=== PATIENT | female | born 1950 | race Caucasian/White ===

== ENCOUNTER → 2022-07-13 14:03 | Outpatient (CLI) | payer MEDICARE, SELFPAY ==
--- NOTE | ~2022-07-13 | XR_ITS ---
XR lumbar spine 2-3V 07/13/2022 14:20 Indication: Low back pain. Right leg pain. Procedure: 3 views lumbar spine Comparison: No prior studies for comparison. Findings: There is disc narrowing at all lumbar levels. There is grade 1 degenerative spondylolisthes is at L4-5 and L5-S1. Vertebral body heights are maintained. There is facet hypertrophy at L3-4, L4-5 and L5-S1. There is atherosclerosis of the aorta and iliac arteries. No acute fracture or traumatic malalignment. Impression: 1: Moderate lumbar spondylosis with grade 1 degenerative spondylolisthesis at L4-5 and L5-S1. Reviewed, dictated and finalized at location B. Impression: 1: Moderate lumbar spondylosis with grade 1 degenerative spondylolisthesis at L 4-5 and L5-S1.
== END ==
PROVIDERS: PCP Emergency Medicine; Visit Provider Physician Assistant
DX: M47.896 Other spondylosis, lumbar region (principal)
CPT/HCPCS: 72100

== ENCOUNTER 2022-08-10 07:30 | Day surgery (SDC) | payer MEDICARE, SELFPAY ==
[2022-08-09 14:09] VITALS: BMI 31.8
--- NOTE | ~2022-08-10 | XR_ITS ---
CORRECTED REPORT exam description change [facility] 08/11/22 This report was recreated on 08/11/22. Original report was EXAMINATION: XR fluoroscopy no charge Pain management procedure TECHNIQUE: Fluoroscopy used during bilateral sacroiliac joint injection performed by [Antonio Cortez MD] on 08/10/2022. 19 seconds of fluoroscopy time with 6 fluoroscopic images captured. FINDINGS: Correlate with procedure note. IMPRESSION: Fluoroscopy used during bilateral sacroiliac joint injection. Please refer to procedural report. Reviewed, dictated and finalized at location L. MTDD IMPRESSION: Fluoroscopy used during bilateral sacroiliac joint injection. Zahira e refer to procedural report.
[2022-08-10 08:05] VITALS: BP 133/80; PULSE 67; RESP 20; TEMP 36.7; O2SAT 100
--- NOTE | 2022-08-10 08:52 | WPDHPUPDATE1 ---
History and Physical Update Update Date/Time: 08/10/22 08:52 History and Physical has been reviewed, including an updated exam of the patient. There are NO changes in the patient's condition. Risks, benefits, and alternatives have been discussed and questions answered. Patient agrees to proceed with procedure.
[2022-08-10 09:30] VITALS: BP 167/68; PULSE 66; RESP 18; O2SAT 100
[2022-08-10 09:35] VITALS: BP 161/72; PULSE 66; RESP 14; O2SAT 100
[2022-08-10 09:46] VITALS: BP 147/76; PULSE 68; RESP 18; O2SAT 100
[2022-08-10] MEDS: LIDOCAINE HCL 1% PF INJ 5 ML VIAL 2.5 ML INFILTRATE (09:50)
--- NOTE | 2022-08-10 09:57 | W.PM.PROC2 ---
Procedure Note - Detailed Date of Procedure 08/10/22 Pre-op Diagnosis M46.1 Post-op Diagnosis Same Procedure Performed bilateral intra-articular SI joint steroid injections under fluoroscopic guidance. Surgeon Antonio Cortez MD Counter Dish Carrier None. Anesthesia Local Indications Bilateral chronic low back pain, sacroiliitis. Findings None. Description of Procedure INFORMED CONSENT: Risks, benefits and alternatives to the procedure were discussed in detail with the patient who expressed explicit understanding and consent to proceed. Patient was informed verbally and in written form regarding the risks associated with the procedure including the low risk of serious infection, bleeding/bruising, allergic reaction, nerve or organ injury, paralysis, procedural site pain or discomfort, worsening pain and/or mobility, failure to treat and/or disfigurement. The patient expressed explicit understanding and consent to proceed. All materials required for the procedure were available prior to procedure start. Site and side were marked prior to procedure and confirmed in the presence of the patient. PROCEDURE IN DETAIL: The patient was brought to the procedural suite and placed in the prone position. Patient was made comfortable with use of pillows under the head/chest, hips and ankles. Skin overlying the injection site on the affected side(s) was prepared broadly with ChloraPrep applicator and draped in a sterile manner. Aseptic technique was used throughout. The SI joint was identified in the AP view and contralateral oblique angulation with caudal tilt was utilized to optimize visualization of the inferior and medial joint line representing the posterior portion of the joint. Local anesthesia was established by infiltration with approximately 5 mL of 2% lidocaine via a 1-1/2 inch 27-gauge needle. A 22-gauge 3.5 inch Quincke spinal needle was advanced until the needle entered the inferior third of the joint space approximately 1cm cephalad from its most inferior point. In the AP view, 0.5 mL of Omnipaque 180 contrast medium was injected after negative aspiration for CSF, blood or other bodily fluid, showing appropriate intra-articular spread of contrast without evidence of intravascular, perineural or intrathecal placement. A 1.0 mL solution containing 5.0 mg of dexamethasone in 0.5% PF bupivacaine was injected after repeat negative aspiration. Appropriate spread of the injectate was confirmed with washout of previous injected contrast. No parasthesias were elicited. Needle was removed completely intact without difficulty. The same exact procedure was repeated for all remaining levels on the contralateral side, left SI joint, modified as necessary to accommodate for the new target location with identical findings/results and no evidence of complication. Images were saved and documented in the patient chart. Patient's skin was cleansed and sterile bandage applied. The patient tolerated the procedure well. The patient was transported to the recovery area in stable condition where they were observed for an appropriate amount of time prior to discharge, without evidence of complication. The patient was instructed to avoid excessive activity for the next 48 hours, including climbing and frequent use of stairs. Showers only for 48 hours. They were instructed not to drive or operate heavy machinery for 24 hours. They are to monitor for severe headaches, fevers, chills, night sweats, erythema/swelling at the site or any other signs of infection, bleeding/bruising, bowel or bladder changes as well as new pain, weakness or numbness in the upper or lower extremity. Should they notice these changes, they are instructed to call our office immediately or report directly to the nearest Emergency Department if no answer or if after posted office hours. COMPLICATIONS: None COMMENTS: None EXPOSURE: Time: 19.4s, Dose: 1.27 mrad CONTRAST WASTED: 29mL Omnipaque 180. Complic
[2022-08-10] MEDS: BUPivacaine HCL 0.5% 10 ML AMP INFILTRATE (10:00)
== END 2022-08-10 10:03 | disposition home or self-care (01) ==
PROVIDERS: PCP Emergency Medicine; Visit Provider Anesthesiology Pain Medicine
PROC: (CPT G0260; principal; 2022-08-10 09:00)
DX: M46.1 Sacroiliitis, not elsewhere classified (principal)
CPT/HCPCS: G0260 ×2; 27096; 99199

== ENCOUNTER → 2022-08-20 13:49 | Outpatient (CLI) | payer MEDICARE, SELFPAY ==
--- NOTE | ~2022-08-20 | MR_ITS ---
EXAMINATION: MR lumbar spine wo con DATE: 08/20/2022 14:31 INDICATION: Right lumbosacral (S1) radicular pain. TECHNIQUE: Magnetic resonance imaging (MRI) of the lumbar spine was performed without intravenous con trast. Sequences included sagittal T2-weighted FSE, sagittal T2-weighted FS FSE, sagittal T1-weighted FSE, and axial T2-weighted FSE. COMPARISON: None FINDINGS: 4 degree lumbar dextrocurvature. 1-2 mm retrolisthesis L2 on L3 and 3 mm retrolisthesis L3 on L4. Mary tebral body heights are normal. Normal marrow signal. This desiccation and mild disc height loss fro m T11-T12 through L5-S1 relatively sparing T12-L1. The conus medullaris terminates at L2-L3. There is normal signal in the caudal spinal cord. Left renal cysts the largest measuring 1.6 cm the lower sharlene e. Paravertebral soft tissues are unremarkable. The following disc levels are specifically discussed: T12-L1: The disc does not extend beyond the endplate margin. There is mild bilateral facet joint oste oarthritis. There is no neural foraminal stenosis. There is no central canal stenosis. L1-L2: Disc is bulging. There is minimal bilateral facet joint osteoarthritis. There is bilateral afua ral foraminal stenosis. There is mild central canal stenosis. L2-L3: Disc is bulging. There is hypertrophy of the ligamentum flavum. There is mild bilateral facet joint osteoarthritis. There is mild to moderate bilateral neural foraminal stenosis. There is mild to moderate central canal stenosis. L3-L4: Disc is bulging. There is hypertrophy of the ligamentum flavum. There is moderate bilateral fa cet joint osteoarthritis. There is mild to moderate bilateral neural foraminal stenosis. There is mil d central canal stenosis. L4-L5: Disc is bulging. There is hypertrophy of the ligamentum flavum. There is severe bilateral fac et joint osteoarthritis. There is moderate bilateral neural foraminal stenosis. There is severe centr al canal stenosis. L5-S1: Disc is mildly bulging. There is moderate left and severe right facet joint osteoarthritis. Th ere is mild bilateral neural foraminal stenosis. There is no central canal stenosis. IMPRESSION: 1. Mild lumbar spondylosis with severe lower lumbar facet osteoarthritis most notable for severe cent ral canal stenosis at L4-L5. Reviewed, dictated and finalized at location A. IMPRESSION: 1. Mild lumbar spondylosis with severe lower lumbar facet osteoarthritis most n otable for severe central canal stenosis at L4-L5.
--- NOTE | ~2022-08-20 | XR_ITS ---
EXAMINATION: XR sacroiliac joints min 3V INDICATION: Bilateral buttock pain TECHNIQUE: Three views of the sacroiliac joints are obtained. COMPARISON: None available FINDINGS: Bone alignment is normal. There is no fracture. No abnormal erosion or sclerosis of the sac roiliac joints is identified. IMPRESSION: 1. No acute osseous abnormality. Reviewed, dictated and finalized at location B.
--- NOTE | ~2022-08-20 | XR_ITS ---
EXAMINATION: XR lumbar spine 6V w bending DATE: 08/20/2022 14:14 INDICATION: Low back pain TECHNIQUE: Anteroposterior, lateral in neutral, flexion and extension, and bilateral oblique views of the lumbar spine, and cone-down lateral view of the lumbosacral junction were obtained. COMPARISON: 07/13/2022 FINDINGS: There are 4 mm of anterolisthesis of L4 on L5. No hypermobility is present with flexion or extension. The vertebral body heights are maintained. There is mild loss of intervertebral disc space height throughout the lumbar spine. There is no fracture. There is severe facet joint osteoarthritis of the lower lumbar spine. Calcified atherosclerosis is noted. Small degenerative osteophytes projec t from the anterior endplates of multiple vertebral bodies. IMPRESSION: 1. Mild to moderate lumbar spondylosis without acute findings. Reviewed, dictated and finalized at location B.
== END ==
PROVIDERS: PCP Emergency Medicine; Visit Provider Anesthesiology Pain Medicine
DX: M43.17 Spondylolisthesis, lumbosacral region (principal); M47.26 Other spondylosis with radiculopathy, lumbar region; M48.061 Spinal stenosis, lumbar region without neurogenic claudication
CPT/HCPCS: 72114; 72148; 72202

== ENCOUNTER 2022-09-14 07:52 | Day surgery (SDC) | payer MEDICARE, SELFPAY ==
[2022-09-13 12:20] VITALS: BMI 31.7
--- NOTE | ~2022-09-14 | XR_ITS ---
XR fluoroscopy no charge Procedure: Right L3-4, L4-5 transforaminal epidural steroid injection TECHNIQUE: Fluoroscopy used during Right L3-4, L4-5 transforaminal epidural steroid injection perfor med by [Antonio Cortez MD] on 09/14/2022. 11 seconds of fluoroscopy time with 3 images captured. FINDINGS: Correlate with procedure note. IMPRESSION: Fluoroscopy used during Right L3-4, L4-5 transforaminal epidural steroid injection. Reviewed, dictated and finalized at location A. IMPRESSION: Fluoroscopy used during Right L3-4, L4-[address] eroid injection.
--- NOTE | 2022-09-14 07:24 | WPDHPUPDATE1 ---
History and Physical Update Update Date/Time: 09/14/22 07:24 History and Physical has been reviewed, including an updated exam of the patient. There are NO changes in the patient's condition. Risks, benefits, and alternatives have been discussed and questions answered. Patient agrees to proceed with procedure.
[2022-09-14 08:48] VITALS: BP 131/71; PULSE 61; RESP 14; O2SAT 98
[2022-09-14 09:25] VITALS: BP 138/62; PULSE 65; RESP 18; O2SAT 98
--- NOTE | 2022-09-14 09:35 | W.PM.PROC2 ---
Procedure Note - Detailed Date of Procedure 09/14/22 Pre-op Diagnosis Spinal stenosis, Lumbar region with nuerogenic claudication, lumbar radiculopathy Post-op Diagnosis Same Procedure Performed Right L3-4, L4-5 transforaminal epidural steroid injection with fluoroscopy. Surgeon Antonio Cortez MD Anesthesia Local Description of Procedure INFORMED CONSENT: Risks, benefits and alternatives to the procedure were discussed in detail with the patient who expressed explicit understanding and consent to proceed. Patient was informed verbally and in written form regarding the risks associated with the procedure including the low risk of serious infection, bleeding/bruising, allergic reaction, nerve or organ injury, paralysis, procedural site pain or discomfort, worsening pain and/or mobility, failure to treat and/or disfigurement. The patient expressed explicit understanding and consent to proceed. All materials required for the procedure were available prior to procedure start. Site and side was marked prior to procedure and confirmed in the presence of the patient. PROCEDURE IN DETAIL: The patient was brought to the procedural suite and placed in the prone position. Patient was made comfortable with use of pillows under the head/chest, hips and ankles. Skin overlying the injection site was prepared broadly with ChloraPrep applicator and draped in a sterile manner. Aseptic technique was employed throughout. The endplates of the vertebral body at the site of interest were aligned in the AP view. Ipsilateral oblique angulation was utilized to better visualize the neuroforamen of interest. Local anesthesia was established by infiltration with approximately 5 mL of 2% lidocaine via a 1-1/2 inch 27-gauge needle. A 22-gauge 5.0 inch Melida (pencil point) spinal needle was advanced until the needle approached the 6 o'clock position on the pedicle just superior to the exiting nerve root. on the right at L4-5. Lateral view was utilized to confirm appropriate position of the needle tip within the superior and posterior portion of the respective foramen. In an AP view, 1 mL of Omnipaque 300 contrast medium was injected after negative aspiration for CSF, blood or other bodily fluid, showing appropriate neurogram without evidence of intravascular or intrathecal spread of contrast. Digital subtraction imaging was used with an additional 1ml of the same contrast medium to confirm absence of intravascular contrast spread. A 1mL solution containing 5 mg of dexamethasone was injected after negative repeat aspiration. Appropriate spread of the injectate was confirmed with washout of previously injected contrast. No parasthesias were elicited. Needle was removed completely intact without difficulty. The same exact procedure was repeated for all remaining levels on the ipsilateral side, right L3-4 neuroforamen, modified as necessary to accommodate for the new target location with identical findings and results and no evidence of complication. Images were saved and documented in the patient chart. Patient's skin was cleaned and sterile bandage applied. The patient tolerated the procedure well. The patient was transported to the recovery area in stable condition where they were observed for an appropriate amount of time prior to discharge, without evidence of complication. The patient was instructed to avoid excessive activity for the next 48 hours, including climbing and frequent use of stairs. Showers only for 48 hours. They were instructed not to drive or operate heavy machinery for 24 hours. They are to monitor for severe headaches, fevers, chills, night sweats, erythema/swelling at the site or any other signs of infection, bleeding/bruising, bowel or bladder changes as well as new pain, weakness or numbness in the upper or lower extremity. Should they notice these changes, they are instructed to call our office immediately or report directly to the nearest Emergency Department if no answer or
[2022-09-14 09:36] VITALS: BP 145/70; PULSE 61; RESP 20; O2SAT 98
[2022-09-14] MEDS: LIDOCAINE HCL 1% PF INJ 5 ML VIAL 3 ML XX (10:19)
[2022-09-14] MEDS: LIDOCAINE HCL 2% PF INJ 5 ML VIAL 1 ML INFILTRATE (10:21)
== END 2022-09-14 09:44 | disposition home or self-care (01) ==
PROVIDERS: PCP Emergency Medicine; Visit Provider Anesthesiology Pain Medicine
PROC: (CPT 64483; principal; 2022-09-14 09:00)
DX: M48.07 Spinal stenosis, lumbosacral region (principal); M54.16 Radiculopathy, lumbar region
CPT/HCPCS: 64483; 99199

== ENCOUNTER 2022-11-05 09:02 | Outpatient (CLI) | payer MEDICARE, SELFPAY ==
--- NOTE | ~2022-11-05 | XR_ITS ---
EXAMINATION: XR chest 2V 11/05/2022 09:41 INDICATION: Dyspnea PROCEDURE: 2 view chest COMPARISON: No prior studies for comparison. FINDINGS: The lungs are clear. The lungs are hyperinflated which is consistent with, but not diagnost ic of chronic obstructive pulmonary disease. The cardiomediastinal silhouette is within normal limits . There are no pleural effusions. There is no pneumothorax suspected. IMPRESSION: 1: NO ACUTE CARDIOPULMONARY DISEASE. Reviewed, dictated and finalized at location B.
--- NOTE | 2022-11-05 09:15 | ECG_ITS ---
Measurements Intervals Clifford Rate: 55 P: 18 MS: 214 QRS: -43 QRSD: 97 T: 30 QT: 434 QTc: 415 Interpretive Statements SINUS BRADYCARDIA WITH FIRST DEGREE AV BLOCK LEFT AXIS DEVIATION POOR R WAVE PROGRESSION, ANTERIOR LEADS BORDERLINE ECG NO PREVIOUS ECG AVAILABLE FOR COMPARISON Electronically Signed On 11-05-2022 10:26:12 CDT by Mushtaq Short D.O.
[2022-11-05 09:56] LABS: Basophils Absolute Auto 0.1 K/mm3 (0.0-0.1); Basophils Percent Auto 0.7 % (0.2-1.2); Eosinophils Absolute Auto 0.5 K/mm3 (0-0.3); Eosinophils Percent Auto 6.6 % (0-4.4); Hematocrit 37.3 % (37.0-47.0); Hemoglobin 12.6 g/dL (12.0-15.0); Immature Granulocyte Absolute 0.01 K/mm3 (0.00-0.031); Immature Granulocyte Percent A 0.1 % (0-0.5); Lymphocytes Absolute Auto 1.71 K/mm3 (0.9-3.2); Mean Corpuscular HGB Conc 33.8 g/dl (32-36); Mean Corpuscular Hemoglobin 29.4 pg (26-34); Mean Corpuscular Volume 87.1 fl (80-100); Mean Platelet Volume 9.7 fl (7.4-10.4); Monocytes Absolute Auto 0.5 K/mm3 (0.1-0.6); Monocytes Percent Auto 6.5 % (2.6-8.5); Neutrophils Absolute Auto 4.7 K/mm3 (1.3-6.7); Neutrophils Percent Auto 63.1 % (45.5-73.1); Platelet Count Result 330 k/mm3 (150-375); Red Blood Count 4.28 M/mm3 (4.2-5.4); Red Cell Distribution Width 12.9 % (11.5-14.5); White Blood Count 7.4 K/mm3 (4.5-10.0)
[2022-11-05 10:07] LABS: Alanine Aminotransferase 22 U/L (6-35); Albumin Level 3.9 g/dL (3.5-5.1); Alkaline Phosphatase 76 U/L (38-126); Anion Gap 4 mmol/L (8-16); Aspartate Amino Transferase 28 U/L (14-36); Bilirubin,Total 0.4 mg/dL (0.2-1.3); Blood Urea Nitrogen 16 mg/dL (7-17); Carbon Dioxide 34 mmol/L (22-30); Chloride 95 mmol/L (98-107); Estimated Glomerular Filt Rate 49; Glucose 100 mg/dL (65-110); Potassium 3.2 mmol/L (3.4-5.0); Sodium 133 mmol/L (137-145)
[2022-11-05 10:15] LABS: INR 0.9; Partial Thromboplastin Time 23.6 SECONDS (22.3-36.8); Prothrombin Time 12.9 Seconds (11.1-14.7)
== END 2022-11-05 09:03 | disposition home or self-care (01) ==
LOC: ANHSURGERY 09:07
PROVIDERS: PCP Emergency Medicine; Visit Provider Anesthesiology Pain Medicine
DX: Z01.810 Encounter for preprocedural cardiovascular examination (principal); Z01.812 Encounter for preprocedural laboratory examination; Z01.811 Encounter for preprocedural respiratory examination; M47.817 Spondylosis without myelopathy or radiculopathy, lumbosacral region; R00.1 Bradycardia, unspecified; I44.0 Atrioventricular block, first degree
CPT/HCPCS: 36415; 71046; 80053; 85025; 85610; 85730; 93005

== ENCOUNTER 2022-11-08 00:43 | Day surgery (SDC) | payer MEDICARE, SELFPAY ==
[2022-11-02 15:22] VITALS: BMI 31.5
--- NOTE | 2022-11-02 15:31 | PC.NURSE ---
PRE-OP INSTRUCTIONS, PLEASE READ CAREFULLY Report to the Outpatient Waiting Room, entrance under the green pavilion located off [facility], at time _0830_ on date _11/08/22 . Planned Procedure Time: _1030_. Time changes happen often and if your time is changed the preop area will call you the afternoon before. - You and your visitor will be asked to self-screen and do not enter if you have any COVID symptoms. - A mask is optional within the hospital at this time. Patients may have clear liquids (water, carbonated beverages, clear teas, apple juice) until 3 hours prior to surgery with a maximum of 20 ounces. - No food from midnight until time of surgery Take the following medications with a SIP of water the morning of surgery: _LEVOTHYROXINE, PROPRANOLOL, & CYCLOBENZAPRINE, TRAMADOL IF NEEDED_ DO NOT STOP ANY OF YOUR OTHER PRESCRIPTION MEDICATIONS PRIOR TO SURGERY ?EXCEPT THE FOLLOWING Medications to discontinue per physician __NONE___, Date to take last dose Please no make-up, nail slovenian, hairspray, perfume, deodorant, or body powder the day of surgery. No jewelry (including any body piercings) or valuables the day of surgery, leave them at home. Please take a shower or bath the night before, or the morning of, surgery with an antibacterial soap. Wear comfortable, loose fitting clothing. - Jewelry must be removed prior to entering the operating room. Rings and piercings that are not removed may be cut off. - The hospital will not accept responsibility for valuables. - Please leave all valuables, including medications, at home the day of surgery. If you are going home after surgery, a licensed ems driver must drive you home. - NO public transportation without another adult if you receive anesthesia. - We recommend that an adult stay with you for 24 hours following discharge. - We also recommend that you do not drive, make important decision, drink alcoholic beverages, or take any drugs that were not prescribed by your health care provider for at least 24 hours after your discharge time. Follow any additional instructions given to you from your surgeon. If you or anyone in your household have experienced Covid symptoms in the past week, please notify your surgeon or the nurse liaison at the phone number below for possible testing. Telephone instructions given to _PATIENT_and asked if any additional questions and then verbalized understanding. Patient advised to call surgeon office or pre surgery nurse liaison [phone] if any additional questions.
--- NOTE | ~2022-11-08 | XR_ITS ---
EXAMINATION: XR fluoroscopy no charge DATE: 11/08/2022 11:48 INDICATION: Lumbar decompression TECHNIQUE: 4 fluoroscopic images of the lumbar spine were obtained during procedure performed by Dr. Cortez. Radiologist was not present for the imaging or procedure. The amount of fluoroscopy time used d uring this procedure was 10.0 minutes. COMPARISON: None. FINDINGS: Fluoroscopic images demonstrate the tip of a metallic probe projecting over the left and right sides of the lower lumbar spine. IMPRESSION: 1. Fluoroscopy utilized during surgical procedure at the lower lumbar spine. See procedure note for f urther detail. Reviewed, dictated and finalized at location A. IMPRESSION: 1. Fluoroscopy utilized during surgical procedure at the lower lumbar spine. Se e procedure note for further detail.
[2022-11-08 08:32] VITALS: BMI 31.7
[2022-11-08 08:35] VITALS: BP 128/68; PULSE 57; RESP 16; TEMP 36.1; O2SAT 100
--- NOTE | 2022-11-08 08:43 | WPDHPUPDATE1 ---
History and Physical Update Update Date/Time: 11/08/22 08:43 History and Physical has been reviewed, including an updated exam of the patient. There are NO changes in the patient's condition. Risks, benefits, and alternatives have been discussed and questions answered. Patient agrees to proceed with procedure.
--- NOTE | 2022-11-08 08:44 | PM.HPGS ---
History of Present Illness History of Present Illness Consent: Risks, benefits, and alternatives have been discussed and questions answered. Patient agrees to proceed with procedure. Chief complaint: spinal stenosis Narrative: Mateo Belcher is a 72 year old female with chronic, recalcitrant pain and disability secondary to moderate to severe lumbar spinal stenosis with ligamentum flavum hypertrophy for bilateral L3-4, L4-5 MILD procedure. [facility] Surgical History Surgical History Hx of cholecystectomy Family History Family History Sibling Diabetes mellitus Family history of malignant neoplasm of cervix Mother Hypertension Social History Social History Smoking status: Former smoker Tobacco type: cigarettes Second hand tobacco smoke exposure: No Additional smoking assessment comments: STATES SMOKED 1/2-3/4PK/DAY/20YRS-QUIT YEARS AGO Alcohol intake: never Substance use: never Substance use type: does not use Lack of Transportation: No Lack of Food: Never True Current Housing: I Have Housing Concerned About Future Housing: No Difficulty Paying Gas/Electric Bills: No Difficulty Paying for Meds: No Currently Unemployed: No Education: Associate Degree Difficulty w/ Childcare or Family Care: No Living arrangements: with family Occupation/Education: retired Gender identity (if verbalized by the patient): Female Spiritual care concerns: No Agree to blood products: Yes Meds Home Medications and Allergies Home Medications Medication Instructions Recorded Confirmed Type omeprazole 20 mg delayed 20 mg PO DAILY 02/05/19 11/02/22 History release,disintegrating tablet propranolol 40 mg tablet See Rx Instructions .Route 07/29/22 11/02/22 Rx .COMPLEX #180 tabs simvastatin 20 mg tablet See Rx Instructions .Route 07/29/22 11/02/22 Rx .COMPLEX #90 tabs ezetimibe 10 mg tablet (Zetia) See Rx Instructions .Route .COMPLEX 08/09/22 11/02/22 History levothyroxine 125 mcg tablet See Rx Instructions .Route 08/20/22 11/02/22 Rx (Euthyrox) .COMPLEX #90 tabs spironolactone 25 See Rx Instructions .Route 06/30/23 09/12/23 Rx mg-hydrochlorothiazide 25 mg tablet .COMPLEX #90 tabs cyclobenzaprine 10 mg tablet 10 mg PO TID PRN muscle spasm #30 11/04/22 Rx tabs tramadol 50 mg tablet 50 mg PO Q6H PRN pain #30 tabs 11/04/22 Rx Allergies Allergy/AdvReac Type Severity Reaction Status Date / Time No Known Allergies Allergy Verified 11/02/22 15:19 Exam Const: General: cooperative, healthy appearing, comfortable, no acute distress, well developed, alert, awake and Physically active Nutritional Appearance: average body habitus Orientation/consciousness: patient oriented x3 HENMT: Head: normal to inspection Eyes: General: appearance normal, both eyes and all related structures Neck: Neck: normal visual inspection Chest: Chest palpation & inspection: normal inspection of the chest Resp: Effort & Inspection: normal respiratory effort Auscultation: clear to auscultation bilaterally Cardio: Rate: regular rate Rhythm: regular rhythm Peripheral pulses: Peripheral pulses 2+ throughout GI: Inspection: normal to inspection Back/Spine/Pelvis: Thoracic/Lumbar Spine: thoracic and lumbar spine normal to inspection Skin: General skin exam: normal color and no rashes or lesions noted Neuro: Cranial nerves: Yes CN's II-XII intact bilaterally Cognition (Neuro): normal cognition Speech: normal speech Extrem: General: normal to inspection Psych: Appearance: grossly normal Mental Status: mental status grossly normal Speech and movement: Normal speech and movement present Assessment and Plan Assessment and plan (1) Spinal stenosis, lumbar region with neurogenic claudication: Code(s): M48.062 - Spinal stenos
--- NOTE | 2022-11-08 09:12 | WPDANESEPPF ---
Anes - Initial Pre Proc Eval Procedure: Operation Date: 11/08/22 10:30 Proposed Procedures p Minimally Invasive Lumbar Decompression L3-4, L4-5 - Antonio Cortez MD Date/Time: 11/08/22 09:12 Surgeon: Antonio Cortez MD Pre Op Diagnosis: spinal stenosis Patient Data Age: 72 Gender: F Height: 1.69 m Weight: 90 kg Allergies Allergy/AdvReac Type Severity Reaction Status Date / Time No Known Allergies Allergy Verified 11/02/22 15:19 Home Medications Medication Instructions Recorded Confirmed Type omeprazole 20 mg delayed 20 mg PO DAILY 02/05/19 11/02/22 History release,disintegrating tablet propranolol 40 mg tablet See Rx Instructions .Route 07/29/22 11/02/22 Rx .COMPLEX #180 tabs simvastatin 20 mg tablet See Rx Instructions .Route 07/29/22 11/02/22 Rx .COMPLEX #90 tabs ezetimibe 10 mg tablet (Zetia) See Rx Instructions .Route .COMPLEX 08/09/22 11/02/22 History levothyroxine 125 mcg tablet See Rx Instructions .Route 08/20/22 11/02/22 Rx (Euthyrox) .COMPLEX #90 tabs spironolactone 25 See Rx Instructions .Route 08/20/22 11/02/22 Rx mg-hydrochlorothiazide 25 mg tablet .COMPLEX #90 tabs cyclobenzaprine 10 mg tablet 10 mg PO TID PRN muscle spasm #30 11/04/22 Rx tabs tramadol 50 mg tablet 50 mg PO Q6H PRN pain #30 tabs 11/04/22 Rx Patient hx anesthesia problems: none Family hx anesthesia problems: none Results Review: All pre-operative results and documents have been reviewed as part of the pre-operative evaluation. [facility] Surgical History Surgical History Hx of cholecystectomy Family History Family History Sibling Diabetes mellitus Family history of malignant neoplasm of cervix Mother Hypertension Social History Social History Smoking status: Former smoker Tobacco type: cigarettes Second hand tobacco smoke exposure: No Additional smoking assessment comments: STATES SMOKED 1/2-3/4PK/DAY/20YRS-QUIT YEARS AGO Alcohol intake: never Substance use: never Substance use type: does not use Lack of Transportation: No Lack of Food: Never True Current Housing: I Have Housing Concerned About Future Housing: No Difficulty Paying Gas/Electric Bills: No Difficulty Paying for Meds: No Currently Unemployed: No Education: Associate Degree Difficulty w/ Childcare or Family Care: No Living arrangements: with family Occupation/Education: retired Gender identity (if verbalized by the patient): Female Spiritual care concerns: No Agree to blood products: Yes Anes - Eval Final PreProcedure Day of Procedure 11/08/22 09:12 Patient weight: normal Heart: regular rate and rhythm Lungs: clear to auscultation Airway: Mallampati scale class II Last oral intake: >/= 8 hours ASA classification: III Emergent: no Anesthetic plan: proceed Anesthesia type and monitoring: general GIVS and standard monitoring Results Review: All pre-operative results and documents have been reviewed as part of the pre-operative evaluation. Informed Consent: The patient's anesthetic plan and its attendant risks and benefits were discussed with the patient/family/POA. Questions were solicited and answers provided to the satisfaction of the patient/family/POA.
[2022-11-08] MEDS: LACTATED RINGERS 1,000 ML 30 ML IV CONT (09:30)
[2022-11-08] MEDS: ceFAZolin 2 GM/D5W 50 ML 2 GM/50 ML BAG IVPB (10:28)
[2022-11-08] MEDS: BUPIVACAINE/EPINEPHRINE 0.5% 50 ML VIAL 15 ML INFILTRATE (10:41)
[2022-11-08] MEDS: LIDO 1%/EPINEPHRINE 1:100,000 50 ML VIAL 15 ML INFILTRATE (10:42)
[2022-11-08 12:10] VITALS: BP 127/70; PULSE 66; RESP 16
--- NOTE | 2022-11-08 12:15 | W.PM.PROC2 ---
Procedure Note - Detailed Date of Procedure 11/08/22 Pre-op Diagnosis lumbar spinal stenosis with neurogenic claudication Post-op Diagnosis Same Procedure Performed Bilateral L3-4, L4-5 Minimally Invasive Lumbar Decompression (MILD) under fluoroscopic guidance. Surgeon Antonio Cortez MD Anesthesia MAC and Local Description of Procedure INFORMED CONSENT: Risks, benefits, and alternatives to the procedure were discussed in detail with the patient who expressed explicit understanding and consent to proceed. Risks discussed with the patient included but were not limited to risk of serious local or systemic infection, bleeding/bruising, epidural hematoma, dural puncture or tear resulting in CSF leak and acute or chronic post-dural puncture headache, scarring/deformity, immediate or delayed allergic reaction, decreased mobility, failure to treat pain, inadvertent neurologic injury resulting in increased pain, weakness/paralysis or numbness, inadvertent organ injury, need for additional surgery, allergic reaction, heart attack, stroke, seizure, coma, . Anesthetic risks were also briefly discussed by myself and the company secretary. The patient expressed understanding and consent to proceed, agreeing that potential benefits outweigh risk of harm. All materials required for the procedure were immediately available prior to procedure start. Site and side were confirmed with the patient, compared carefully to the patient chart and consent, and marked prior to transport to the operating room. Appropriate time out procedure was performed per protocol prior to procedure start. PROCEDURE IN DETAIL: The patient was brought to the operative suite and placed in the prone position. Appropriate ASA standard monitors were attached. Anesthesia was initiated without difficulty or event. Eyes were protected. Pressure points were padded with joints in neutral position. When appropriate, breasts and genitals were evaluated and protected. Eyes were checked and were free from undue pressure. Skin overlying the procedure site was marked with sterile marker. Surgical area was prepared in a typical sterile fashion with ChloraPrep and allowed to dry for at least 3 minutes prior to sterilely draping the surgical site. The lumbar spine was identified in the AP fluoroscopic view with slight cephalad tilt perfectly aligning the endplates at the targeted levels with spinous processes bisecting the transpedicular plane. After identifying the intended incision site approximately 1.5 levels inferior to the level of interest, the area was anesthetized by infiltration with no more than 10ml of a 1:1 admixture of 0.5% PF bupivacaine with epinephrine and 2% PF lidocaine with epinepherine via a 27-gauge needle after negative aspiration. A 22-gauge spinal needle was used to provide additional and adequate local anesthesia to the level of the interspinous ligament, ligamentum flavum and the periosteum of the lamina at the intended treatment levels. In the AP view, a #11 scalpel blade was used to create a single stab incision at the intended incision site on the targeted side. The Vertos MILD kit was opened and the included cannula and trocar assembly was advanced through the incision to contact the midportion of the right lamina just adjacent to the spinous process at L5. Once seated, the lateral view was used to gauge depth demonstrating the most anterior tip of the trocar posterior to the epidural space at all times. The dress cap maker-provided cannula stabilizer was placed over the trocar flush to the patient's lumbar flank. Cannula obturator with handle was removed. Included depth guide was then attached to the insertion port on the cannula and set to an intial depth of 15 mm. The bone rongeur was advanced to the depth of the lumbar lamina at the targeted level. Depth gauge was then adjusted allowing rongeur tip to advance in the contralateral oblique view to the anterior border of the superior and
[2022-11-08 12:40] VITALS: BP 136/68; PULSE 63; RESP 20
[2022-11-08 12:41] VITALS: BP 110/67; PULSE 75; RESP 20; O2SAT 97
[2022-11-08 13:00] VITALS: BP 133/65; PULSE 65; RESP 16
== END 2022-11-08 13:15 | disposition home or self-care (01) ==
PROVIDERS: PCP Emergency Medicine; Visit Provider Anesthesiology Pain Medicine
PROC: (CPT 0275T; principal; 2022-11-08 10:30)
DX: M48.062 Spinal stenosis, lumbar region with neurogenic claudication (principal); Z87.891 Personal history of nicotine dependence; Z79.891 Long term (current) use of opiate analgesic; Z00.6 Encounter for examination for normal comparison and control in clinical research program
CPT/HCPCS: 0275T; 99199; C1889; J0360; J0690; J2704; J3010; J7120

== ENCOUNTER 2024-07-19 12:33 | Outpatient (CLI) | payer MEDICARE, SELFPAY ==
[2024-07-20 19:13] LABS: Amphetamines NEGATIVE ng/mL (<500); Barbiturates NEGATIVE ng/mL (<300); Benzodiazepines NEGATIVE ng/mL (<100); Cocaine Metabolite NEGATIVE ng/mL (<150); Marijuana Metabolite NEGATIVE ng/mL (<20); Methadone Metabolite NEGATIVE ng/mL (<100); Opiates NEGATIVE ng/mL (<100); Oxidant NEGATIVE mcg/mL (<200); PCP NEGATIVE ng/mL (<25); pH 6.3 (4.5-9.0)
== END 2024-07-19 12:34 | disposition home or self-care (01) ==
LOC: ANHLAB 12:38
PROVIDERS: PCP Family Medicine; Visit Provider Family Medicine
DX: F11.90 Opioid use, unspecified, uncomplicated (principal); Z79.899 Other long term (current) drug therapy
CPT/HCPCS: 80307

== ENCOUNTER 2024-07-23 12:21 | Outpatient (CLI) | payer MEDICARE, SELFPAY ==
[2024-07-23 12:53] LABS: IFOB Positive Control Positive; Immunochemical Fecal Occult Bl Negative (N)
== END 2024-07-23 12:22 | disposition home or self-care (01) ==
PROVIDERS: PCP Family Medicine; Visit Provider Family Medicine
DX: D64.9 Anemia, unspecified (principal); Z79.1 Long term (current) use of non-steroidal anti-inflammatories (NSAID)
CPT/HCPCS: 82274

== ENCOUNTER 2024-10-04 10:06 | Outpatient (CLI) | payer MEDICARE, SELFPAY ==
--- NOTE | ~2024-10-04 | XR_ITS ---
XR lumbar spine min 4V 10/04/2024 11:09 Indication: Back pain Procedure: 5 views lumbar spine Comparison: 08/20/2022 Findings: There is disc narrowing at all lumbar levels. There is facet hypertrophy at L4-5 and L5-S1 with grade 1 spondylolisthesis at L4-5. There is dextroscoliosis. No acute fracture or traumatic carlos lignment. There is atherosclerosis of the aorta. Impression: 1: Moderate lumbar spondylosis with grade 1 degenerative spondylolisthesis at L4-5. Reviewed, dictated and finalized at location A. Impression: 1: Moderate lumbar spondylosis with grade 1 degenerative spondylolisthesis at L 4-5.
--- NOTE | ~2024-10-04 | MR_ITS ---
EXAMINATION: MR lumbar spine wo con DATE: 10/04/2024 10:50 INDICATION: Spinal stenosis with lumbar neurogenic claudication TECHNIQUE: Magnetic resonance imaging (MRI) of the lumbar spine was performed without intravenous con trast. Sequences included sagittal T2-weighted FSE, sagittal T2-weighted FS FSE, sagittal T1-weighted FSE, and axial T2-weighted FSE. COMPARISON: 08/20/2022 FINDINGS: A degree lumbar dextrocurvature. 2 mm anterolisthesis L4 on L5. Vertebral body heights are normal. Mi ld fibrovascular degenerative endplate changes along the left anterior inferior endplate of L1. Marro w signal is otherwise normal. Mild disc height loss at T10-T11, T11-T12, L2-L3, L3-L4 and L5-S1. Mild to moderate disc height loss at L1-L2 and L4-L5. There are annular fissures at T7 T12, L1-L2, L3-L4 and L4-L5. The conus medullaris terminates at L2. There is normal signal in the caudal spinal cord. P aravertebral soft tissues are unremarkable. The following disc levels are specifically discussed: T12-L1: Disc is minimally bulging. There is mild right and moderate left facet joint osteoarthritis. There is no neural foraminal stenosis. There is no central canal stenosis. L1-L2: Disc is bulging. There is mild bilateral facet joint osteoarthritis. There is mild bilateral n eural foraminal stenosis. There is mild central canal stenosis. L2-L3: Disc is bulging. There is mild hypertrophy of the ligamentum flavum. There is mild to moderat e bilateral facet joint osteoarthritis. There is mild to moderate bilateral neural foraminal stenosis . There is mild to moderate central canal stenosis. L3-L4: Disc is bulging. There is hypertrophy of the ligamentum flavum. There is mild to moderate left and moderate right facet joint osteoarthritis. There is moderate left and mild to moderate right afua ral foraminal stenosis. There is mild to moderate central canal stenosis with narrowing of the latera l recesses. L4-L5: Disc is bulging. There is hypertrophy of the ligamentum flavum. There is severe bilateral face t joint osteoarthritis. There is moderate bilateral neural foraminal stenosis. There is severe stenos is of the central canal and moderate narrowing of the lateral recesses. L5-S1: Disc is mildly bulging. There is severe bilateral facet joint osteoarthritis. There is mild bi lateral neural foraminal stenosis. There is mild central canal stenosis with narrowing of the lateral recesses, mild on the left and moderate on the right.. IMPRESSION: 1. Mild to moderate lumbar spondylosis with 2 mm anterolisthesis at L4-L5 contributing to severe cent ral canal stenosis at this level. Reviewed, dictated and finalized at location A. IMPRESSION: 1. Mild to moderate lumbar spondylosis with 2 mm anterolisthesis at L4-L5 contr ibuting to severe central canal stenosis at this level.
== END 2024-10-04 10:07 | disposition home or self-care (01) ==
LOC: GOSHIMG 10:07
PROVIDERS: PCP Nurse Practitioner Adult Health; Visit Provider Nurse Practitioner Adult Health
DX: M47.816 Spondylosis without myelopathy or radiculopathy, lumbar region (principal); M43.16 Spondylolisthesis, lumbar region; M48.062 Spinal stenosis, lumbar region with neurogenic claudication; M48.061 Spinal stenosis, lumbar region without neurogenic claudication
CPT/HCPCS: 72110; 72148

== ENCOUNTER 2024-12-12 08:25 | Outpatient (CLI) | payer MEDICARE, SELFPAY ==
--- OUTSIDE RECORDS SUMMARY | 2024-11-08 06:00 | XMS_ITS ---
Author Organization [facility] , Address [address] [place] [address] Care Team Providers Care Factory Focus Technician Name Role Phone MarydeoChioma posadas Primary Care Provider Baljit Disla Unavailable [phone] ALLERGIES No Known Allergies RESULTS Component Value Reference Range Notes DEXA Hip and Spine Reviewed date:11/27/2024 10:12:56 AM Interpretation:medicare/supplement Performing Lab: Notes/Report: medicare/supplement REASON FOR REFERRAL Reason EVAL AND TREAT DX: O STEOPOROSIS Diagnosis 1 Osteoporosis (M81.0) Referral Organization [facility], Referring Provider First Name Baljit Referring Provider Last Name [place] Referring Provider Speciality Orthopedic Surgery Referred Provider Joselin Galeano Referred Provider Specialty Endocrinolog y Referral Priority Routine REASON FOR VISIT Lumbar MEDICATIONS Medication SIG (Take, Route, Fr equency, Duration) Notes Start Date End Date Status Iron Active Levothyroxine Sodium Active Calcium Active Multivitamin Active PriLOSEC Active Ezetimibe Active Simvastatin Active Spironolactone-HCTZ Active Vitamin D-3 Active Propranolol HCl Acti ve VITAL SIGNS BMI 31 kg/m2 11/08/2024 Height 66.5 in 11/08/2024 Weight 195 lbs 11/08/2024 PROCEDURES Procedure Date Ordered Date Performed Result Body Sit e lumbar fusion 11/08/2024 N/A Encounters Encounter Location Date Provider Diagnosis [facility], [address] [place] [address] 11/08/2024 Baljit Grove Other low back pain M54.59 ; Spondylolisthesis of lumbar region M43.16 ; Spinal stenosis of lumbar region without neurogenic claudication M48.061 ; 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 The surgical procedure of choice would be that of LDL's at L3-4, L4-5, L5-S1 with hemilaminectomies at L3-4 and L5-S1 on the right. I recommend a TLIF at L4-5 to address both the severe stenosis and segmental instability. She will need to undergo a DEXA scan to evaluate bone density prior to the surgical procedure. <u><b>ADDENDUM</b></ u> DEXA scan performed on 11/08/2024 reveals T-scores of -2.3 involving the L. femoral neck, -1.8 involving the L. hip and -0.6 involving the L-spine. The numbers in the L-spine can be falsely elevated due to advanced degenerative changes and facet sclerosis. The patient was called and the results were explained to her. It is my recommendation she see Dr. Carlos A Plunkett, [employer] who specializes in bone metabolic disease to initiate treatment. It is my opinion the findings will not stop her from undergoing surgical intervention. Given her loss of function and the fact that treatment for bone metabolic disease transcends a long period of time, I would recommend surgical intervention in the near future and initiate a treatment regimen for her bone disease. If need be, we will augment screw fixation with methylmethacrylate cement. The patient was called on 11/10/2024. The treatment plan was discussed with her. She agrees to proceed forward with surgical intervention. We will call Dr. Carlos A Plunkett's office to see if she can be seen sooner than later. She will continue on her present medication to moderate complaints. She will stop all anti-inflammatory medication and blood thinners 1 week prior to surgery. [facility]/clm 11/08/2024 Spondylolisthesis of lumbar region (ICD-10 - M43.16) <b>IMPRESSION:</b> Back pain Degenerative spondylolisthesis Spinal stenosis Facet DJD Lumbar radiculopathy Questionable osteopenia <b>PLAN:</b> Given the patient's history of complaints and diagnostic findings, it is my opinion she is candidate for surgical intervention. The surgical procedure of choice would be that of LDL's at L3-4, L4-5, L5-S1 with hemilaminectomies at L3-4 and L5-S1 on the right. I recommend a TLIF at L4-5 to address both the severe stenosis and segmental instability. She will need to undergo a DEXA scan to evaluate bone density prior to the surgical procedure. <u><b>ADDENDUM</b></ u> DEXA scan performed on 11/08/2024 reveals T-scores of -2.3 involving the L. femoral neck, -1.8 involving the L. hip and -0.6 involving the L-spine. The numbers in the L-spine can be falsely elevated due to advanced degenerative changes and facet sclerosis. The patient was called and the results were explained to her. It is my recommendation she see Dr. Carlos A Plunkett, [employer] who specializes in bone metabolic disease to initiate treatment. It is my opinion the findings will not stop her from undergoing surgical intervention. Given her loss of function and the fact that treatment for bone metabolic disease transcends a long period of time, I would recommend surgical intervention in the near future and initiate a treatment regimen for her bone disease. If need be, we will augment screw fixation with methylmethacrylate cement. The patient was called on 11/10/2024. The treatment plan was discussed with her. She agrees to proceed forward with surgical intervention. We will call Dr. Carlos A Plunkett's office to see if she can be seen sooner than later. She will continue on her present medication to moderate complaints. She will stop all anti-inflammatory medication and blood thinners 1 week prior to surgery. [facility]/clm 11/08/2024 Spinal stenosis of lumbar region without neurogenic claudication (ICD-10 - M48.061) <b>IMPRESSION:</b> Back pain Degenerative spondylolisthesis Spinal stenosis Facet DJD Lumbar radiculopathy Questionable osteopenia <b>PLAN:</b> Given the patient's history of complaints and diagnostic findings, it is my opinion she is candidate for surgical intervention. The surgical procedure of choice would be that of LDL's at L3-4, L4-5, L5-S1 with hemilaminectomies at L3-4 and L5-S1 on the right. I recommend a TLIF at L4-5 to address both the severe stenosis and segmental instability. She will need to undergo a DEXA scan to evaluate bone density prior to the surgical procedure. <u><b>ADDENDUM</b></ u> DEXA scan performed on 11/08/2024 reveals T-scores of -2.3 involving the L. femoral neck, -1.8 involving the L. hip and -0.6 involving the L-spine. The numbers in the L-spine can be falsely elevated due to advanced degenerative changes and facet sclerosis. The patient was called and the results were explained to her. It is my recommendation she see Dr. Carlos A Plunkett, [employer] who specializes in bone metabolic disease to initiate treatment. It is my opinion the findings will not stop her from undergoing surgical intervention. Given her loss of function and the fact that treatment for bone metabolic disease transcends a long period of time, I would recommend surgical intervention in the near future and initiate a treatment regimen for her bone disease. If need be, we will augment screw fixation with methylmethacrylate cement. The patient was called on 11/10/2024. The treatment plan was discussed with her. She agrees to proceed forward with surgical intervention. We will call Dr. Carlos A Plunkett's office to see if she can be seen sooner than later. She will continue on her present medication to moderate complaints. She will stop all anti-inflammatory medication and blood thinners 1 week prior to surgery. [facility]/clm 11/08/2024 Facet degeneration of lumbar region (ICD-10 - M47.816) <b>IMPRESSION:</b> Back pain Degenerative spondylolisthesis Spinal stenosis Facet DJD Lumbar radiculopathy Questionable osteopenia <b>PLAN:</b> Given the patient's history of complaints and diagnostic findings, it is my opinion she is candidate for surgical intervention. The surgical procedure of choice would be that of LDL's at L3-4, L4-5, L5-S1 with hemilaminectomies at L3-4 and L5-S1 on the right. I recommend a TLIF at L4-5 to address both the severe stenosis and segmental instability. She will need to undergo a DEXA scan to evaluate bone density prior to the surgical procedure. <u><b>ADDENDUM</b></ u> DEXA scan performed on 11/08/2024 reveals T-scores of -2.3 involving the L. femoral neck, -1.8 involving the L. hip and -0.6 involving the L-spine. The numbers in the L-spine can be falsely elevated due to advanced degenerative changes and facet sclerosis. The patient was called and the results were explained to her. It is my recommendation she see Dr. Carlos A Plunkett, [employer] who specializes in bone metabolic disease to initiate treatment. It is my opinion the findings will not stop her from undergoing surgical intervention. Given her loss of function and the fact that treatment for bone metabolic disease transcends a long period of time, I would recommend surgical intervention in the near future and initiate a treatment regimen for her bone disease. If need be, we will augment screw fixation with methylmethacrylate cement. The patient was called on 11/10/2024. The treatment plan was discussed with her. She agrees to proceed forward with surgical intervention. We will call Dr. Carlos A Plunkett's office to see if she can be seen sooner than later. She will continue on her present medication to moderate complaints. She will stop all anti-inflammatory medication and blood thinners 1 week prior to surgery. [facility]/clm 11/08/2024 Lumbar radiculopathy (ICD-10 - M54.16) <b>IMPRESSION:</b> Back pain Degenerative spondylolisthesis Spinal stenosis Facet DJD Lumbar radiculopathy Questionable osteopenia <b>PLAN:</b> Given the patient's history of complaints and diagnostic findings, it is my opinion she is candidate for surgical intervention. The surgical procedure of choice would be that of LDL's at L3-4, L4-5, L5-S1 with hemilaminectomies at L3-4 and L5-S1 on the right. I recommend a TLIF at L4-5 to address both the severe stenosis and segmental instability. She will need to undergo a DEXA scan to evaluate bone density prior to the surgical procedure. <u><b>ADDENDUM</b></ u> DEXA scan performed on 11/08/2024 reveals T-scores of -2.3 involving the L. femoral neck, -1.8 involving the L. hip and -0.6 involving the L-spine. The numbers in the L-spine can be falsely elevated due to advanced degenerative changes and facet sclerosis. The patient was called and the results were explained to her. It is my recommendation she see Dr. Carlos A Plunkett, [employer] who specializes in bone metabolic disease to initiate treatment. It is my opinion the findings will not stop her from undergoing surgical intervention. Given her loss of function and the fact that treatment for bone metabolic disease transcends a long period of time, I would recommend surgical intervention in the near future and initiate a treatment regimen for her bone disease. If need be, we will augment screw fixation with methylmethacrylate cement. The patient was called on 11/10/2024. The treatment plan was discussed with her. She agrees to proceed forward with surgical intervention. We will call Dr. Carlos A Plunkett's office to see if she can be seen sooner than later. She will continue on her present medication to moderate complaints. She will stop all anti-inflammatory medication and blood thinners 1 week prior to surgery. [facility]/clm PLAN OF TREATMENT Pending Test Test Name Order Date Electrocardiogram (EKG) 11/08/2024 CBC With Differential/Platelet PT AND PTT 11/08/2024 Chem-Comprehensive 11/08/2024 X ray : Chest 2 views, PA, Lateral 11/08 lumbar fusion 11/08/2024 INR 11/08/2024 Type and Screen 11/08/2024 Referrals Referral Date Details EVAL AND TREAT DX: O STEOPOROSIS , Joselin Plunkett Next Appt Details Provider Name:Baljit Buck ot, 12/25/2024 08:00:00 AM, [address], [place], [address], Provider Name:Rebekah Abad y, 12/25/2024 08:00:00 AM, [address], [place], [address], Provider Name:Baljit Buck ot, 01/07/2025 11:10:00 AM, [address], [address], [place], [address], Progress Notes * Examination Category Sub-Category Detail Notes Category Not es X-ray Interpretation X-rays L-spine performed on 10/04/2024 reveal evidence of a 15 degree curvature. Diminished density involving the L-spine and pelvis. Grade I spondylolisthesis at L4-5 measuring 6 mm. Diminished disc space height at L4-5. Facet sclerosis worse at L4-5, L5-S1 and less so at L3-4. Atherosclerotic changes involving the descending abdominal aorta and iliac vessels. General Examination GENERAL: Patient is a lert and cooperative. She moves about the room in a cautious fashion. She maintains a forward-flexed position at the waist by about 15-20 degrees NECK: Loss of cervical anisha dosis. Cervical ROM reduced in all directions by 35%. Spurling's test negative HEART: Regular rate and rhy thm LUNGS: Clear to auscultatio n in all zhang ABDOMEN: No tenderness to pal pation, bowel sounds present all four quadrants NEUROLOGIC: UE neurologic exam r eveals symmetric DTR's, intact sensation, 5+/5+ motor strength. Nash's sign negative. LE neurologic exam reveals increased sensation involving R. anterior thigh, R. lateral calf and R. dorsal foot. R. EHL and anterior tibialis weakness at 4+/5+. DTR's 2+. SLR testing negative. No clonus, negative Babinski's sign involving LE's SKIN: No evidence of skin rashes or dermal lesions MUSCULOSKELETAL: Thoracic exam reveal s tension, but no spasm. Lumbar exam reveals no scar. Tension involving lumbar spinal musculature bilaterally. Lumbar ROM reveals FF 95 degrees, EXT 25 degrees, SB 35 degrees. She can heel and toe stand PSYCHIATRIC: Mood and affect appe ar normal HEENT: No masses, PERRLA, E OM intact, no nasal drainage, no lymphadenopathy JOINTS: Hip log roll testing negative. Hip ROM near normal. FABERE test negative HEMATOLOGIC: No evidence of exces sive bruising or bleeding MRI Imaging Studies MRI L-sp ine performed on 10/04/2024 reveals evidence of disc desiccation and degeneration at all levels. L1-2 mild facet and ligamentum flavum hypertrophy with slight diminished central canal area. L2-3 mild facet and ligamentum flavum hypertrophy. L3-4 facet and ligamentum flavum hypertrophy with moderate stenosis. L4-5 severe stenosis associated with facet and ligamentum flavum hypertrophy and disc bulging, thecal sac measurement 5.17 X 4.0. L5-S1 facet degeneration, no evidence of central stenosis, some degree of bilateral foraminal stenosis. History and Physical Notes * HPI (History of Present Illness) Category Sub-Category Detail Notes Category Not es Lower back Mateo Belcher is a 74-year-old female evaluated today, 11/08/2024. She presents with a 3 year history of progressive increasing lower lumbar back pain radiating into the LE's. She reports that her leg weakness diminishes her capacity to ambulate. She denies any history of falls. She uses an assist device to ambulate. She reports that her leg symptoms involve the R. leg greater than L. leg. At the present time, she can barely walk a block. Her prior treatment has included use of medications. She has undergone 2 prior SIMONA's, which were performed some 2 year ago. Those injections did not offer any improvement in her complaints. She describes her complaints as moderate to severe, sharp, aching, electric shocking-type pain radiating into the LE's. Symptoms are worsened with prolonged standing, ambulation and tend to be improved with bending forward, laying down. There has been some loss of bowel/bladder function. She describes urgency, but no yasmine incontinence. Consultation Request Notes Referral Date Referring Provider Referred Provider Not es 11/08/2024 Baljit Grove, Joselin Love [place] TREAT DX: OSTEOPOROSIS
--- OUTSIDE RECORDS SUMMARY | 2024-11-12 08:14 | XMS_ITS ---
Author Organization [facility] Address [address] [facility] [address] [place] [address] Care Team Providers Care Splitting Machine Operator Name Role Phone Chioma Quezada Primary Care Provider Baljit Disla [phone] REASON FOR VISIT Appointment Encounters Encounter Location Date Provider Diagnosis [facility], [address] [address] 11/12/2024 Baljit Grove PLAN OF TREATMENT Next Appt Details Provider Name:Baljit Buck ot, 12/25/2024 08:00:00 AM, [address], [place], [address], Provider Name:Rebekah phillip, 12/25/2024 08:00:00 AM, [address], [place], [address], Provider Name:Baljit Buck ot, 01/07/2025 11:10:00 AM, [address], [facility] [address], [place], [address],
--- OUTSIDE RECORDS SUMMARY | 2024-11-28 06:43 | XMS_ITS ---
Author Organization [facility] Address [address] [address] Care Team Providers Care Fitness Attendant Name Role Phone Maryrenetta Chioma Primary Care Provider Baljit Disla [phone] REASON FOR VISIT clearance Encounters Encounter Location Date Provider Diagnosis [facility], [address] [address] 11/28/2024 Baljit Grove Abnormal EKG R94.31 ASSESSMENTS Encounter Date Diagnosis Assessment Notes Treatment Notes Treatment Clinical Notes Section Notes 11/28/2024 Abnormal EKG (ICD-10 - R94.31) PLAN OF TREATMENT Pending Test Test Name Order Date Echocardiogram 11/28/2024 Next Appt Details Provider Name:aBljit Buck ot, 12/25/2024 08:00:00 AM, [address], [place], [address], Provider Name:Rebekah phillip, 12/25/2024 08:00:00 AM, [address], [place], [address], Provider Name:Baljit Buck ot, 01/07/2025 11:10:00 AM, [address], [facility] [address], [place], [address],
--- OUTSIDE RECORDS SUMMARY | 2024-11-30 04:58 | XMS_ITS ---
Author Organization [facility] Address [address] [address] Care Team Providers Care Disease Case Manager Rn Name Role Phone Maryrenetta Chioma Primary Care Provider Baljit Disla [phone] REASON FOR VISIT EKG/Labs Encounters Encounter Location Date Provider Diagnosis [facility], [address] [address] 11/30/2024 Baljit Grove PLAN OF TREATMENT Next Appt Details Provider Name:Baljit Buck ot, 12/25/2024 08:00:00 AM, [address], [place], [address], Provider Name:Rebekah phillip, 12/25/2024 08:00:00 AM, [address], [place], [address], Provider Name:Baljit Buck ot, 01/07/2025 11:10:00 AM, [address], [facility] [address], [place], [address],
--- OUTSIDE RECORDS SUMMARY | 2024-12-11 06:28 | XMS_ITS ---
Author Organization [facility] Address [address] [facility] [address] [place] [address] Care Team Providers Care Cuffer Name Role Phone Chioma Quezada Primary Care Provider Baljit Disla [phone] REASON FOR VISIT Testing Encounters Encounter Location Date Provider Diagnosis [facility], [address] [address] 12/11/2024 Baljit Grove PLAN OF TREATMENT Next Appt Details Provider Name:Baljit Buck ot, 12/25/2024 08:00:00 AM, [address], [place], [address], Provider Name:Rebekah phillip, 12/25/2024 08:00:00 AM, [address], [place], [address], Provider Name:Baljit Buck ot, 01/07/2025 11:10:00 AM, [address], [facility] [address], [place], [address],
--- NOTE | ~2024-12-12 | NM_ITS ---
EXAMINATION: NM hellen stress w perfusion DATE: 12/12/2024 15:12 CDT INDICATION: Preprocedural cardiovascular examination TECHNIQUE: Rest images were obtained following intravenous administration of 10.9 mCi Tc99m tetrofosmin (Myoview). The patient was infused intravenously with Lexiscan (regadenoson). Then, 33.7 mCi Tc99m tetrofosmin (Myoview) was administered intravenously, and stress images were obtained. Data was eduardo nstructed into short axis and horizontal and vertical long axis SPECT images. Gated SPECT images were also obtained. COMPARISON: None. FINDINGS: There is no definite reversible or fixed perfusion abnormality to suggest ischemia or infarction. There is no segmental wall motion abnormality. Left ventricular ejection fraction measures 82%. IMPRESSION: 1. No definite ischemia or infarct. 2. Normal left ventricular ejection fraction measuring 82%. Reviewed, dictated and finalized at location O.
--- OUTSIDE RECORDS SUMMARY | 2024-12-12 08:46 | XMS_ITS | Patient Health Record ---
Author Organization [facility], Address [address] [place] [address] Care Team Providers Care Safety Aide Name Role Phone MarydeoChioma posadas Primary Care Provider Baljit Disla Unavailable [phone] ALLERGIES No Known Allergies RESULTS Component Value Reference Range Notes DEXA Hip and Spine Reviewed date:11/27/2024 10:12:56 AM Interpretation:medicare/supplement Performing Lab: Notes/Report: medicare/supplement REASON FOR REFERRAL Reason EVAL AND TREAT DX: O STEOPOROSIS Diagnosis 1 Osteoporosis (M81.0) Referral Organization [facility] Referring Provider First Name Baljit Referring Provider Last Name [place] Referring Provider Speciality Orthopedic Surgery Referred Provider Joselin Galeano Referred Provider Specialty Endocrinolog y Referral Priority Routine MEDICATIONS Medication SIG (Take, Route, Fr equency, Duration) Notes Start Date End Date Status Iron Active Ezetimibe Active Simvastatin Active Spironolactone-HCTZ Active Vitamin D-3 Active Propranolol HCl Acti ve Levothyroxine Sodium Active Calcium Active Multivitamin Active PriLOSEC Active PROBLEMS Problem Type ICD Code Onset Dates Problem Status W/U Status Risk SNOMED Code Notes Problem Osteoporosis (M81.0) Active confirmed Osteoporosis (97749421) Problem Lumbar stenosis with neurogenic claudication (M48.062) Active confirmed Neurogenic claudication (884462889) Problem Myocardial infarction (I21.9) Active confirmed Myocardial infarction (90376312) VITAL SIGNS Height 66.5 in 11/08/2024 Weight 195 lbs 11/08/2024 BMI 31 kg/m2 11/08/2024 PROCEDURES Procedure Date Ordered Date Performed Result Body Sit e lumbar fusion 11/08/2024 N/A Encounters Encounter Location Date Provider Diagnosis [facility], [address] [place] [address] 11/08/2024 [place] Other low back pain M54.59 ; Spondylolisthesis of lumbar region M43.16 ; Spinal stenosis of lumbar region without neurogenic claudication M48.061 ; 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 and Lumbar radiculopathy M54.16 [facility], [address] [place] [address] 11/12/2024 [place] [facility], [address] [place] [phone] 11/28/2024 Bal[place]it [place] Abnormal EKG R94.31 [facility], [address] [place] [phone] 11/30/2024 [place] [facility], [address] [address] 12/11/2024 Bal[place]it [place] ASSESSMENTS Encounter Date Diagnosis Assessment Notes Treatment [...] recommendation she see Dr. Carlos A Plunkett, Bank Reconciliator who specializes in bone metabolic disease to [...] blood thinners 1 week prior to surgery. [facility] [place] 11/28/2024 Abnormal EKG (ICD-10 - R94.31) 11/08/2024 Spondylolisthesis of lumbar region (ICD-10 - [...] recommendation she see Dr. Carlos A Plunkett, Bank Reconciliator who specializes in bone metabolic disease to [...] blood thinners 1 week prior to surgery. [facility] [place] 11/08/2024 Spinal stenosis of lumbar region without [...] recommendation she see Dr. Carlos A Plunkett, Bank Reconciliator who specializes in bone metabolic disease to [...] blood thinners 1 week prior to surgery. [facility] [place] 11/08/2024 Facet degeneration of lumbar region (ICD-10 [...] recommendation she see Dr. Carlos A Plunkett, Bank Reconciliator who specializes in bone metabolic disease to [...] blood thinners 1 week prior to surgery. [facility] 11/08/2024 Lumbar radiculopathy (ICD-10 - M54.16) <b>IMPRESSION:</b> [...] recommendation she see Dr. Carlos A Plunkett, Bank Reconciliator who specializes in bone metabolic disease to [...] blood thinners 1 week prior to surgery. [facility] [place] PLAN OF TREATMENT Pending Test Test Name Order Date Electrocardiogram (EKG) 11/08/2024 CBC With Differential/Platelet PT AND PTT 11/08/2024 Chem-Comprehensive 11/08/2024 X ray : Chest 2 views, PA, Lateral 11/08 lumbar fusion 11/08/2024 Echocardiogram 11/28/2024 INR 11/08/2024 Type and Screen 11/08/2024 Next Appt Details Provider Name:Baljit Buck ot, 12/25/2024 08:00:00 AM, [address], [place], [address], Provider Name:Rebekah phillip, 12/25/2024 08:00:00 AM, [address], [place], [address], Provider Name:Baljit Buck ot, 01/07/2025 11:10:00 AM, [address], [facility], [place], [address], Insurance Providers Payer Name Payer Address Payer Phone Subscriber Number Group Number Insured Name Patient Relationship to Insured Coverage Start Date Coverage End Date Medicare [place] [address] [address] [place] [address] [id number] Mateo Belcher Self - [facility] [address] [address] [place] [address] [id number] Mateo Belcher Self - patient is the insured MEDICAL (GENERAL) HISTORY Medical History History ICD Code Anemia Back pain Spinal stenosis Did not answer question regarding h/o em otional/psychiatric disorder Denies h/o drug/chemical dependency Surgical History Surgery Date(Month/Year) Cholecystectomy
--- NOTE | 2024-12-12 09:21 | EST_ITS ---
Patient Info Name: Mateo Belcher Age: 74 years : 1950 Gender: Female Ht: 66 in Wt: 195 lbs BSA: 2.06 m2 HR: 61 bpm BP: 129 / 83 mmHg Exam Date: 12/12/2024 9:21 AM Patient Status: O Admit Date: 12/12/2024 Exam Type: CA stress hellen w NM A regadenoson stress test was performed. Staff Referring Physician: Mushtaq Short DO Attending Provider: Mushtaq Short DO Exercise Technologist: Roslyn Raymundo Exercise Physician: Mushtaq Short DO Summary 1. 1. Negative lexiscan stress test for ischemic ST changes by ECG criteria. 2. 2. Stable hemodynamics throughout the test. 3. 3. Nuclear scan to follow and will be reported separately. Please correlate with it. 4. 4. Patient informed of the above results. Protocol: Lexiscan Stress ECG Details Stage: REST Duration (min): 1 min : 22 sec HR (bpm): 60 SBP (mmHg): 129 DBP (mmHg): 83 Stage: REST Duration (min): 2 min : 34 sec HR (bpm): 60 SBP (mmHg): 129 DBP (mmHg): 83 Stage: REST Duration (min): 7 min : 26 sec HR (bpm): 63 SBP (mmHg): 129 DBP (mmHg): 83 Stage: STAGE 1 Duration (min): 1 min : 0 sec HR (bpm): 78 SBP (mmHg): 157 DBP (mmHg): 75 Stage: RECOVERY Duration (min): 1 min : 0 sec HR (bpm): 77 SBP (mmHg): 157 DBP (mmHg): 75 Stage: RECOVERY Duration (min): 2 min : 0 sec HR (bpm): 73 SBP (mmHg): 157 DBP (mmHg): 75 Stage: RECOVERY Duration (min): 3 min : 0 sec HR (bpm): 74 SBP (mmHg): 141 DBP (mmHg): 71 Stage: RECOVERY Duration (min): 4 min : 0 sec HR (bpm): 73 SBP (mmHg): 141 DBP (mmHg): 71 Stage: RECOVERY Duration (min): 5 min : 0 sec HR (bpm): 73 SBP (mmHg): 148 DBP (mmHg): 68 Stage: RECOVERY Duration (min): 6 min : 0 sec HR (bpm): 71 SBP (mmHg): 148 DBP (mmHg): 68 Stage: RECOVERY Duration (min): 7 min : 0 sec HR (bpm): 71 SBP (mmHg): 146 DBP (mmHg): 68 Stage: RECOVERY Duration (min): 7 min : 7 sec HR (bpm): 71 SBP (mmHg): 146 DBP (mmHg): 68 Rest HR: 63 bpm Peak HR: 85 bpm Rest Sys BP: 129 mmHg Peak Sys BP: 157 mmHg Max Pred HR: 147 bpm % Max Pred HR: 58 % Target HR: 125 bpm Max RPP: 13,345 bpm*mmHg Termination Reason: Completed protocol Cardiac Symptoms: Shortness of breath Total Time: 1 min : 0 sec Rest Menon BP: 83 mmHg Peak Menon BP: 75 mmHg Total Dose: 0.4 mg Resting ECG Sinus rhythm. Stress ECG No ST changes. Arrhythmias None. Report Signatures
== END 2024-12-12 08:26 | disposition home or self-care (01) ==
PROVIDERS: PCP Family Medicine; Visit Provider Internal Medicine Cardiovascular Disease
DX: Z01.810 Encounter for preprocedural cardiovascular examination (principal)
CPT/HCPCS: 78452; 93017; A9502; J2785